=== PATIENT | male | born 1980 | race Two or more races ===

== ENCOUNTER 2024-07-24 08:20 | Emergency (ER) | payer MEDICAID, SELFPAY ==
--- NOTE | 2024-07-24 08:23 | EKG_ITS ---
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
[2024-07-24 08:25] VITALS: BP 179/111; PULSE 77; RESP 23; TEMP 37; O2SAT 94; BMI 36.3
--- NOTE | 2024-07-24 08:29 | XR_ITS ---
Examination: PA lateral chest 2 views TECHNIQUE: Upright PA lateral chest 2 views Exam date and time: July 24, 2024 0852 hours INDICATIONS: Chest pain beginning 2 weeks ago. FINDINGS: Normal heart size Pneumonia right base is no longer identified Currently lungs are clear Intact osseous structures IMPRESSION: No active disease
[2024-07-24 09:03] LABS: Basophils # (Auto) 0.1 Thou/mm3 (0.0-0.2); Basophils % (Auto) 0 % (0-2.5); Eosinophils # (Auto) 0.1 Thou/mm3 (0.0-0.5); Eosinophils % (Auto) 1 % (0-10); Hematocrit 40.8 % (41.0-53.0); Hemoglobin 13.3 g/dL (13.5-16.0); Immature Granulocytes % (Auto) 2 % (0-0); Immature Granulocytes Auto 0.39 Thou/mm3 (0.00-0.00); Lymphocytes # (Auto) 5.3 Thou/mm3 (1.0-4.8); Lymphocytes % (Auto) 30 % (10-50); Mean Corpuscular HGB Conc 32.6 g/dl (31.0-37.0); Mean Corpuscular Hemoglobin 26.2 pg (25.0-35.0); Mean Corpuscular Volume 80 fL (80-100); Monocytes % (Auto) 6 % (0-12); Neutrophils # (Auto) 10.5 Thou/mm3 (1.8-7.7); Neutrophils % (Auto) 61 % (37-80); Nucleated Red Blood Cell % 0 /100 WBC (0); Platelet Count 382 Thou/mm3 (140-440); RDW Standard Deviation 50.4 fL (35.1-43.9); Red Blood Count 5.08 Miln/mm3 (4.50-5.90); White Blood Count 17.4 Thou/mm3 (3.8-10.6)
[2024-07-24 09:11] LABS: Amphetamine/Methamp Scrn,U Negative (Negative); Barbiturate Screen,Urine Negative (Negative); Benzodiazepines Screen,Urine Negative (Negative); Benzoylecgonine Screen, Ur Negative (Negative); Fentanyl Screen,Urine Negative (Negative); Opiate Screen,Urine Negative (Negative); THC Screen,Urine Positive (Negative)
[2024-07-24 09:25] LABS: INR 1.1 (0.9-1.3); Partial Thromboplastin Time 26.1 Seconds (22.0-36.0); Prothrombin Time 11.6 Seconds (9.0-12.2)
[2024-07-24 09:26] LABS: B-Type Natriuretic Peptide 57 pg/mL (0-100)
[2024-07-24 09:28] LABS: Alanine Aminotransferase 77 U/L (10-49); Albumin, Serum 4.6 gm/dL (3.5-5.0); Albumin/Globulin Ratio 1.7 (1.2-2.2); Alcohol, Blood Medical 144.9 mg/dL (0-10.0); Alkaline Phosphatase 167 U/L (46-116); Anion Gap 12 (7-16); Aspartate Amino Transferase 43 U/L (0-34); BUN/Creatinine Ratio 12 Ratio (12-20); Bilirubin,Total 0.7 mg/dL (0.3-1.2); Blood Urea Nitrogen 13 mg/dL (9-23); Calcium 9.8 mg/dL (8.3-10.6); Calcium (Corrected) 9.8 mg/dL (8.5-10.1); Carbon Dioxide 19.5 mMol/L (20.0-31.0); Chloride 106 mMol/L (98-107); Creatinine (Component) 1.1 mg/dL (0.6-1.3); Estimated Creatinine Clearance 90.6 mL/min (>60); Globulin 2.7 gm/dL (2.3-3.5); Glucose 317 mg/dL (74-106); Magnesium 1.6 mg/dL (1.6-2.6); Osmolality,Calculated 285 (275-295); Potassium 3.2 mMol/L (3.4-5.1); Sodium 137 mMol/L (136-145); Total Protein 7.3 gm/dL (5.7-8.2); Troponin I < 0.020 ng/mL (0.0-0.045); eGFR > 60 See Note
[2024-07-24 09:34] VITALS: BP 122/83; PULSE 80; RESP 22; TEMP 36.6; O2SAT 96
[2024-07-24] MEDS: SODIUM CHLORIDE 0.9% 500 ML 500 ML 999 ML IV (10:09)
[2024-07-24] MEDS: POTASSIUM CHLORIDE 20 mEq TABCR 40 MEQ PO (10:11)
[2024-07-24 10:35] LABS: Phosphorous 1.4 mg/dL (2.4-5.1)
[2024-07-24] MEDS: ALBUTEROL/IPRATROPIUM (Duoneb) RT SOL 3 ML NEBU INH (10:35)
[2024-07-24 10:38] VITALS: PULSE 73; RESP 16; O2SAT 99
[2024-07-24 10:40] LABS: D-Dimer < 250 ng/mL (<600)
--- NOTE | 2024-07-24 11:08 | EDNOTE_ITS ---
ED SOB =RME/HPI General Chief Complaint: Shortness of Breath/Dyspnea Stated Complaint: pna, sob Time Seen by Provider: 07/24/24 08:20 Arrival date/time: 07/24/24 08:20 RME / HPI RME / HPI Narrative: A 43-year-old male patient known case of SVT, CAD, hypertension, alcohol use disorder, methamphetamine abuse, presented to the ED due to shortness of breath for 2 weeks. Patient reported that he has shortness of breath for the past 2 weeks that worsening over time, he came to the ED previously and he was prescribed Z-Jake however it did not improve his symptoms. Patient reported that he has no fever or chills however he has increased urination, patient reported that he has support 2 pillows behind his back on his sleep because of the shortness of breath he reported that 4 days ago he had an episode of heart racing for 5 minutes however he denied any chest pain. He reported that his palpitation resolved after some ice his face. Last methamphetamine abuse was yesterday Last drink was yesterday night Related Data Home Medications ?Medication ?Instructions ?Recorded ?Confirmed lactulose 10 gram/15 mL oral 15 ml BID 04/16/23 06/18/24 solution amoxicillin 875 mg-potassium 1 tab BID 06/18/24 06/18/24 clavulanate 125 mg tablet Previous Rx's ?Medication ?Instructions ?Recorded aspirin 81 mg tablet,delayed 81 mg PO QDAY 30 days #30 tabs 06/19/24 release atorvastatin 80 mg tablet 80 mg PO HS 30 days #30 tabs 06/19/24 losartan 100 mg tablet 100 mg PO QDAY #30 tabs 06/19/24 metoprolol succinate 50 mg 50 mg PO QDAY 30 days #30 tabs 06/19/24 tablet,extended release 24 hr benzonatate 100 mg capsule 100 mg PO TID #14 caps 07/13/24 ibuprofen 800 mg tablet 800 mg PO TID PRN pain #30 tabs 07/13/24 azithromycin 250 mg tablet See Rx Instructions PO .COMPLEX #6 07/15/24 tabs Allergies Allergy/AdvReac Type Severity Reaction Status Date / Time fluconazole Allergy Intermediate Swelling Verified 07/13/24 11:16 vancomycin Allergy Intermediate Rash Verified 07/13/24 11:16 Review of Systems Review of Systems Systems Reviewed: All systems reviewed, normal except as documented ED Exam Narrative Physical exam: GEN: AOx3, able to speak full sentences, mild shortness of breath. 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 Course Quality Measures none Orders Category Date Time Status EKG (ED ONLY) *Do not use* NOW Care 07/24/24 08:23 Completed Diet Carbohydrate Consistent Low Diet 07/24/24 Breakfast Active EKG (ED Only) Stat Exams 07/24/24 08:23 Draft XR chest 2V Stat Exams 07/24/24 08:29 Completed Alcohol, Blood Medical Stat Lab 07/24/24 08:49 Completed B-Type Natriuretic Peptide Stat Lab 07/24/24 08:49 Completed CBC Stat Lab 07/24/24 08:49 Completed Comprehensive Metabolic Panel Stat Lab 07/24/24 08:49 Completed D-Dimer Stat Lab 07/24/24 08:49 Completed Drug Screen,Urine Stat Lab 07/24/24 08:43 Completed Magnesium Stat Lab 07/24/24 08:49 Completed Partial Thromboplastin Time Stat Lab 07/24/24 08:49 Completed Phosphorous Stat Lab 07/24/24 08:49 Completed Prothrombin Time with INR Stat Lab 07/24/24 08:49 Completed Troponin I Stat Lab 07/24/24 08:49 Completed Albuterol/Ipratr Rt Angi [Duoneb Rt Angi] Med 07/24/24 09:45 Discontinued 3 ml INH X1 ONE Aspirin Med 07/24/24 09:22 Discontinued 325 mg PO X1 ONE Naph,[facility] [Neutra-Phos Pkt] Med 07/24/24 12:14 Discontinued 1 packet PO X1 ONE Nitroglycerin Oint 2% [Nitro-paste Oint 2%] Med 07/24/24 09:22 Discontinued 1 inch TOP X1 ONE Potassium Chloride [K-Dur] Med 07/24/24 09:47 Discontinued 40 meq PO X1 ONE Sodium Chloride 0.9% 500 ml [Ns] 500 ml Med 07/24/24 09:48 Discontinued IV 999 mls/hr Sodium Chloride 0.9% 500 ml [Ns] 500 ml Med 07/24/24 12:22 Discontinued IV 999 mls/hr Vital Signs Vital signs: Vital Signs Temperature 98.6 F 07/24/24 08:25 Pulse Rate 77 07/24/24 08:25 Respiratory Rate 23 H 07/24/24 08:25 Blood Pressure 179/111 H 07/24/24 08:25 Pulse Oximetry (%) 94 L 07/24/24 08:25 Oxygen Delivery Method Room Air 07/24/24 08:25 Shortness of Breath / Dyspnea MDM Narrative MDM Narrative:: On evaluation patient was found to have Blood pressure of 179/111, heart rate of 77, respiratory rate of 23, temperature of 98.6 O2 saturation 94 on room air. Chest x-ray was clear not the pathology. Consolidation from 1 week ago appears to be resolved. WBC found to be 17.4, given the fact that the patient has WBC level of 17.4 this could be secondary to meth abuse as the patient's last meth abuse was yesterday. Also patient was drinking last night however he denied passing out. Vicon-C showed potassium level 3.2 was given potassium, glucose level was found to be 317 patient reported that his prediabetes. Phosphorus level found to be 1.4, AST and LT were found to be elevated 43 and 77 respectively, BNP and troponin are within normal limits. Patient was given breathing treatment which improved his symptoms and also was given 1 bolus of IV fluid 500 as the patient was complaining of excessive diuresis most likely secondary to increased blood sugar. After few hours of starting the treatment patient started to improve and he decided to leave [place]. Patient data External records reviewed:: [facility] previous records Clinical information provided by:: patient Social determinants that could affect healthcare access:: substance use Patient has the following chronic illnesses:: CHF, hypertension, substance abuse How is presenting disease/condition affected by chronic disease/condition?: exacerbated by Evaluation data The following diagnostics were reviewed and interpreted by me:: lab results, radiology exam(s) and EKG tracing(s) Lab and/or radiology exams considered but not ordered:: None Interpretation Summary: CHF exacerbation, dehydration Medications / Prescriptions Medications or Prescriptions considered but not ordered:: None Medication administrations:: Medication Administration History Discontinued Medications Albuterol/Ipratropium (Albuterol/Ipratropium (Duoneb) Rt Angi 3 Ml Nebu) 3 ml INH X1 ONE Stop: 07/24/24 09:46 Last Admin: 07/24/24 10:35 Dose: 3 ml Documented By: GREYSON Aspirin (Aspirin 325 Mg Tablet) 325 mg PO X1 ONE Stop: 07/24/24 09:23 Sodium Chloride (Ns) 500 mls @ 999 mls/hr IV .Q31M ONE Stop: 07/24/24 10:18 Last Admin: 07/24/24 10:09 Dose: 999 mls/hr Documented By: JUNI Sodium Chloride (Ns) 500 mls @ 999 mls/hr IV .Q31M ONE Stop: 07/24/24 12:52 Nitroglycerin (Nitroglycerin Oint 2% 1 Inch Packet) 1 inch TOP X1 ONE Stop: 07/24/24 09:23 Potassium Chloride (Potassium Chloride 20 Meq Tabcr) 40 meq PO X1 ONE Stop: 07/24/24 09:48 Last Admin: 07/24/24 10:11 Dose: 20 meq Documented By: JUNI Potassium Phos/Sodium Phos (Naph,[facility] 1 Packet (1.5 Gm)) 1 packet PO X1 ONE Stop: 07/24/24 12:15 As above if given Consultations Consultation(s) initiated? (list below): No Diagnosis Shortness of Breath Differential Diagnosis: congestive heart failure Most likely diagnosis given after review of the tests above:: Dehydration, CHF exacerbation Admission Indicated Admission indicated?: not indicated Admission Request Was there a request for admission?: No Disposition Plan Disposition Plan: other (specify) (Patient left AMA) Discharge Plan Plan Patient Disposition: Left Against Medical Advice Prescriptions/Referrals Prescriptions/Med Rec: No Action amoxicillin-pot clavulanate 875-125 mg tablet 1 tab BID atorvastatin 80 mg tablet 80 mg PO HS 30 Days Qty: 30 2RF aspirin 81 mg Tablet,Delayed Release (Dr/Ec) 81 mg PO QDAY 30 Days Qty: 30 2RF metoprolol succinate 50 mg tablet extended release 24 hr 50 mg PO QDAY 30 Days Qty: 30 2RF losartan 100 mg tablet 100 mg PO QDAY Qty: 30 2RF lactulose 10 gram/15 mL solution 15 ml BID ibuprofen 800 mg tablet 800 mg PO TID PRN (Reason: pain) Qty: 30 0RF benzonatate 100 mg capsule 100 mg PO TID Qty: 14 0RF azithromycin 250 mg tablet See Rx Instructions .ROUTE .COMPLEX Qty: 6 0RF Rx Instructions: For 250 mg dose pack: take 500 mg today (day 1), then 250 mg for 4 days (days 2-5) Referrals: Marek England MD [Primary Care Provider] - In 1 week Problem List Clinical Impression: CHF (congestive heart failure) Patient/Caregiver Discharge Instructions Print Language: Telugu
[2024-07-24 12:00] VITALS: BP 146/85; PULSE 80; RESP 18; O2SAT 94
--- NOTE | 2024-07-24 13:00 | PC.NURSE ---
P became anxious and wanted to leave. Pt informed that if he leaves before exam compleat, could lead to injury and or . Pt verbalizes he understands and still wants to leaves. Ptr signed out of ED against medical advice. IV removed. pt left.
== END 2024-07-24 13:00 | disposition left against medical advice (07) ==
PROVIDERS: Nurse Practitioner Primary Care; Student in an Organized Health Care Education/Training Program; Emergency Provider Emergency Medicine; PCP Family Medicine
DX: I11.0 Hypertensive heart disease with heart failure (principal); I50.9 Heart failure, unspecified; F15.10 Other stimulant abuse, uncomplicated; R07.9 Chest pain, unspecified; Z53.29 Procedure and treatment not carried out because of patient's decision for other reasons
CPT/HCPCS: 36415; 71046; 80053; 80307; 80320; 83735; 83880; 84100; 84484; 85025; 85379; 85610; 85730; 93005; 94640; 99284; A9270; J7040; G0480

== ENCOUNTER 2025-01-08 08:59 | Emergency (ER) | payer MEDICAID, SELFPAY ==
--- NOTE | 2025-01-08 09:02 | EKG_ITS ---
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
[2025-01-08 09:12] VITALS: BP 149/83; PULSE 73; RESP 18; TEMP 37.1; O2SAT 97; BMI 40.8
--- NOTE | 2025-01-08 09:16 | XR_ITS ---
Examination: PA lateral chest 2 views TECHNIQUE: Upright PA lateral chest 2 views Exam date and time: January 08, 2025 1032 hours INDICATIONS: Right upper abdominal pain chest pain nausea constipation beginning one week ago FINDINGS: Normal heart size Lungs are clear. Osseous structures are intact IMPRESSION: No active disease
--- NOTE | 2025-01-08 09:16 | XR_ITS ---
Examination: Abdomen sonogram, Limited Date and time of exam: January 08, 2025 0935 hours INDICATIONS: Right upper abdominal pain beginning one week ago Technique: Real-time dejesus scale transabdominal sonographic images of the upper abdomen obtained. Findings: Cholelithiasis. Gallbladder wall 0.3 cm no edema Common bile duct 0.4 cm Pancreatic head 3.3 cm Liver 17.3 cm irregular contour no focal liver lesions Normal hepatopedal portal venous flow Patent IVC IMPRESSION: Cholelithiasis, negative for cholecystitis Mild hepatomegaly suspect primary hepatocellular disease
--- NOTE | 2025-01-08 09:17 | EDRME_ITS ---
Rapid Medical Screening Exam [facility] Arrival date/time: 01/08/25 08:59 44-year-old male presents to the emergency department for complaint of chest pain right upper abdominal pain and nausea ongoing x 1 week Chief Complaint: Abdominal Pain Vital signs: Vital Signs Temperature 98.7 F 01/08/25 09:12 Pulse Rate 73 01/08/25 09:12 Respiratory Rate 18 01/08/25 09:12 Blood Pressure 149/83 H 01/08/25 09:12 Pulse Oximetry (%) 97 01/08/25 09:12 Oxygen Delivery Method Room Air 01/08/25 09:12
[2025-01-08] MEDS: ONDANSETRON ODT 4 MG TABRAP PO (10:07)
[2025-01-08] MEDS: IBUPROFEN TAB 400 MG TABLET 800 MG PO (10:07)
[2025-01-08 10:12] LABS: Basophils # (Auto) 0.1 Thou/mm3 (0.0-0.2); Basophils % (Auto) 1 % (0-2.5); Eosinophils # (Auto) 0.3 Thou/mm3 (0.0-0.5); Eosinophils % (Auto) 3 % (0-10); Hematocrit 33.8 % (41.0-53.0); Hemoglobin 10.4 g/dL (13.5-16.0); Immature Granulocytes % (Auto) 0 % (0-0); Immature Granulocytes Auto 0.02 Thou/mm3 (0.00-0.00); Lymphocytes # (Auto) 2.6 Thou/mm3 (1.0-4.8); Lymphocytes % (Auto) 35 % (10-50); Mean Corpuscular HGB Conc 30.8 g/dl (31.0-37.0); Mean Corpuscular Volume 75 fL (80-100); Monocytes # (Auto) 0.6 Thou/mm3 (0.0-0.8); Monocytes % (Auto) 8 % (0-12); Neutrophils # (Auto) 3.9 Thou/mm3 (1.8-7.7); Neutrophils % (Auto) 52 % (37-80); Nucleated Red Blood Cell % 0 /100 WBC (0); Platelet Count 317 Thou/mm3 (140-440); RDW Standard Deviation 46.5 fL (35.1-43.9); Red Blood Count 4.52 Miln/mm3 (4.50-5.90); White Blood Count 7.4 Thou/mm3 (3.8-10.6)
[2025-01-08 10:13] LABS: Collection Type, Urine Clean Catch; RBC,Urine 0 /hpf (0-3); Squamous Epithelial Cell,Urine 0 /hpf (0-5); WBC,Urine 0 /hpf (0-5)
[2025-01-08 10:33] LABS: Bilirubin,Urine Negative (Negative); Blood,Urine Negative (Negative); Clarity,Urine Clear (Clear/Hazy); Color,Urine Colorless (Lt Yel-Yel); Culture Indicated,Urine Not Indicated; Glucose, Urine 3+ (Negative); Ketones,Urine Negative (Negative); Leukocyte Esterase,Urine Negative (Negative); Nitrite,Urine Negative (Negative); PH,Urine 6.5 (5.0-7.0); Protein,Urine Negative (Neg - Trace); Specific Gravity,Urine 1.006 (1.001-1.035); Urobilinogen,Urine Negative mg/dL (0.0-1.0)
[2025-01-08 10:38] LABS: Alanine Aminotransferase 21 U/L (10-49); Albumin, Serum 4.8 gm/dL (3.5-5.0); Albumin/Globulin Ratio 1.9 (1.2-2.2); Alkaline Phosphatase 94 U/L (46-116); Anion Gap 12 (7-16); Aspartate Amino Transferase 33 U/L (0-34); BUN/Creatinine Ratio 16 Ratio (12-20); Bilirubin,Total 1.2 mg/dL (0.3-1.2); Blood Urea Nitrogen 16 mg/dL (9-23); Calcium 9.4 mg/dL (8.3-10.6); Calcium (Corrected) 9.4 mg/dL (8.5-10.1); Carbon Dioxide 22.9 mMol/L (20.0-31.0); Chloride 105 mMol/L (98-107); Estimated Creatinine Clearance 104.9 mL/min (>60); Globulin 2.5 gm/dL (2.3-3.5); Glucose 142 mg/dL (74-106); Lipase 55 U/L (12-53); Osmolality,Calculated 282 (275-295); Potassium 3.9 mMol/L (3.4-5.1); Sodium 140 mMol/L (136-145); Total Protein 7.3 gm/dL (5.7-8.2); Troponin I < 0.002 ng/mL (0.0-0.045); eGFR > 60 See Note
[2025-01-08 10:50] LABS: Amphetamine/Methamp Scrn,U Negative (Negative); Barbiturate Screen,Urine Negative (Negative); Benzodiazepines Screen,Urine Negative (Negative); Benzoylecgonine Screen, Ur Negative (Negative); Fentanyl Screen,Urine Negative (Negative); Opiate Screen,Urine Negative (Negative); THC Screen,Urine Positive (Negative)
--- NOTE | 2025-01-08 11:26 | PD.EDCHEST ---
ED Chest Pain RME/HPI General Chief Complaint: Abdominal Pain Stated Complaint: RUQ ABD PAIN, CHEST PAIN, NAUSEA Time Seen by Provider: 01/08/25 11:18 Arrival date/time: 01/08/25 08:59 RME / HPI RME / HPI narrative: 44-year-old male presents to the emergency department for complaint of chest pain right upper abdominal pain and nausea ongoing x 1 week. It comes and goes, described as sharp pain, severity moderate. Patient denies any fever denies any diarrhea denies any constipation denies any other complaints. No medication was taken prior to arrival. Related Data Home Medications ?Medication ?Instructions ?Recorded ?Confirmed lactulose 10 gram/15 mL oral 30 ml BID 04/16/23 07/25/24 solution Previous Rx's ?Medication ?Instructions ?Recorded aspirin 81 mg tablet,delayed 81 mg PO QDAY 30 days #30 tabs 06/19/24 release atorvastatin 80 mg tablet 80 mg PO HS 30 days #30 tabs 06/19/24 benzonatate 100 mg capsule 100 mg PO TID #14 caps 07/13/24 amoxicillin 875 mg-potassium 1 tab PO BID 4 days #8 tabs 07/27/24 clavulanate 125 mg tablet losartan 25 mg tablet 50 mg (2 x 25 mg) PO QDAY 1 month 07/27/24 #60 tabs ketorolac 10 mg tablet 10 mg PO Q8H PRN pain 5 days #20 01/08/25 tabs metoclopramide HCl 10 mg tablet 10 mg PO Q8H PRN nausea and 01/08/25 (Reglan) vomiting #20 tabs pantoprazole 40 mg tablet,delayed 40 mg PO QDAY #20 tabs 01/08/25 release (Protonix) Allergies Allergy/AdvReac Type Severity Reaction Status Date / Time vancomycin Allergy Intermediate Rash Verified 07/13/24 11:16 fluconazole AdvReac Intermediate Swelling Verified 07/26/24 16:29 of Lip/Tongue/Throat Review of Systems Review of Systems Narrative Review of Systems: Review of system reviewed and within normal limits except mentioned in HPI ED Exam Narrative Physical exam: VITAL SIGNS: Reviewed. GENERAL APPEARANCE: Alert and interactive, follows commands, no acute distress, HEAD AND FACE: Non-traumatic. ENT: PERRL, pink conjunctivitis, eyelid no trauma, Mucous membrane moist. NECK: Supple, nontender, no nuchal rigidity. CHEST: No tenderness, no crepitus, no paradoxical movement, no retractions. LUNGS: Clear, well ventilated, symmetric, no rales, no wheezing, no ronchi, no stridor, good breath sounds bilaterally. HEART: Regular rate, regular rhythm, no murmur, no gallops. ABDOMEN: Soft, positive bowel sounds, nondistended, no guarding, right upper quadrant tenderness, no rebound, no masses, RECTAL: Deferred. GENITAL: Deferred. NEUROLOGICAL: Gross motor function intact sensory function intact, Appropriate for age. MUSCULOSKELETAL: low back nontender, full range of motion. EXTREMITIES: Nontender, full range of motion. SKIN: Color pink, dry, no rash, no lacerations, no abrasions, no contusions. LYMPHATICS: Deferred. Course Quality Measures none Orders Category Date Time Status EKG (ED ONLY) *Do not use* NOW Care 01/08/25 09:02 Completed EKG (ED Only) Stat Exams 01/08/25 09:02 Draft US gall bladder Stat Exams 01/08/25 09:16 Completed XR chest 2V Stat Exams 01/08/25 09:16 Completed CBC Stat Lab 01/08/25 09:53 Completed Comprehensive Metabolic Panel Stat Lab 01/08/25 09:53 Completed Drug Screen,Urine Stat Lab 01/08/25 10:05 Completed Lipase Stat Lab 01/08/25 09:53 Completed Troponin I Stat Lab 01/08/25 09:53 Completed UA, C/S IF [Urinalysis, C/S if Indicated] Stat Lab 01/08/25 10:05 Completed Ibuprofen Tab [Motrin Tab] Med 01/08/25 09:22 Discontinued 800 mg PO X1 ONE Ketorolac Inj [Toradol Inj] Med 01/08/25 11:23 Discontinued 30 mg IM X1 ONE Metoclopramide [Reglan] Med 01/08/25 11:24 Discontinued 10 mg PO X1 ONE Ondansetron Odt [Zofran Odt] Med 01/08/25 09:22 Discontinued 4 mg PO X1 ONE mg Hyd/Al Hyd/Trent Susp [Maalox Susp] Med 01/08/25 11:23 Discontinued 30 ml PO X1 ONE Vital Signs Vital signs: Vital Signs Temperature 98.7 F 01/08/25 09:12 Pulse Rate 73 01/08/25 09:12 Respiratory Rate 18 01/08/25 09:12 Blood Pressure 149/83 H 01/08/25 09:12 Pulse Oximetry (%) 97 01/08/25 09:12 Oxygen Delivery Method Room Air 01/08/25 09:12 Chest Pain [facility] Narrative [facility] Narrative:: 44-year-old male presents to the emergency department for complaint of chest pain right upper abdominal pain and nausea ongoing x 1 week. It comes and goes, described as sharp pain, severity moderate. Patient denies any fever denies any diarrhea denies any constipation denies any other complaints. No medication was taken prior to arrival. Patient's workup is significant for cholelithiasis with no sign of acute cholecystitis. Patient was given Toradol Reglan Zofran and Maalox with significant improvement of symptoms. I personally reviewed and interpreted the x-ray of this patient. There is no acute abnormalities found, no infiltrates no pneumothorax no hemothorax normal chest x-ray. Review of other structures was without significant abnormal findings also. EKG showed normal sinus rhythm, ventricular rate of 69 bpm, no ST segment elevation or depression other. I additionally reviewed the radiologist report and agree with the interpretation. Clinically there is no sign of acute cholecystitis. Patient is stable for discharge home was advised to follow-up with PCP and for referral to general surgeon for definitive management of the gallbladder. Patient agrees with the plan Patient data External records reviewed:: None Clinical information provided by:: patient Social determinants that could affect healthcare access:: none Patient has the following chronic illnesses:: None How is presenting disease/condition affected by chronic disease/condition?: no chronic disease Evaluation data The following diagnostics were reviewed and interpreted by me:: lab results, radiology exam(s) and EKG tracing(s) Lab and/or radiology exams considered but not ordered:: None Interpretation Summary: See results in MDM Medications / Prescriptions Medications or Prescriptions considered but not ordered:: None Medication administrations:: Medication Administration History Discontinued Medications Al Hydrox/Mg Hydrox/Simethicone (Mg Hyd/Al Hyd/Trent (Maalox Reg) Susp 30 Ml Udc) 30 ml PO X1 ONE Stop: 01/08/25 11:24 Ibuprofen (Ibuprofen Tab 400 Mg Tablet) 800 mg PO X1 ONE Stop: 01/08/25 09:23 Last Admin: 01/08/25 10:07 Dose: 800 mg Documented By: DB Ketorolac Tromethamine (Ketorolac Inj 60 Mg/2 Ml Vial) 30 mg IM X1 ONE Stop: 01/08/25 11:24 Metoclopramide HCl (Metoclopramide 5 Mg Tablet) 10 mg PO X1 ONE Stop: 01/08/25 11:25 Ondansetron HCl (Ondansetron Odt 4 Mg Tabrap) 4 mg PO X1 ONE; Protocol Stop: 01/08/25 09:23 Last Admin: 01/08/25 10:07 Dose: 4 mg Documented By: Damion Kerr Zofran Consultations Consultation(s) initiated? (list below): No Diagnosis Chest Pain Differential Diagnosis: chest pain and biliary colic Most likely diagnosis given after review of the tests above:: Cholelithiasis Admission Indicated Admission indicated?: not indicated Admission Request Was there a request for admission?: No Disposition Plan Disposition Plan: Discharge Discharge Attestation Discharge Attestation: The patient was given an opportunity to ask questions and understood the discharge instructions. Discharge instructions specifically effects, indications for sooner follow up or return to the emergency department, and the expected course of current diagnosis. Patient condition: Stable Discharge Plan Plan Patient Disposition: HOME (Self Care) Disposition Comment: stable Prescriptions/Referrals Prescriptions/Med Rec: New metoclopramide HCl [Reglan] 10 mg tablet 10 mg PO Q8H PRN (Reason: nausea and vomiting) Qty: 20 0RF ketorolac 10 mg tablet 10 mg PO Q8H PRN (Reason: pain) 5 Days Qty: 20 0RF pantoprazole [Protonix] 40 mg tablet,delayed release (DR/EC) 40 mg PO QDAY Qty: 20 0RF No Action atorvastatin 80 mg tablet 80 mg PO HS 30 Days Qty: 30 2RF aspirin 81 mg Tablet,Delayed Release (Dr/Ec) 81 mg PO QDAY 30 Days Qty: 30 2RF lactulose 10 gram/15 mL solution 30 ml BID benzonatate 100 mg capsule 100 mg PO TID Qty: 14 0RF losartan 25 mg Tablet 50 mg PO QDAY 30 Days Qty: 60 1RF amoxicillin-pot clavulanate 875-125 mg tablet 1 tab PO BID 4 Days Qty: 8 0RF Referrals: Marek England MD [Primary Care Provider] - In 1 week Problem List Clinical Impression: Cholelithiasis Patient/Caregiver Discharge Instructions Discharge Activity: activity as tolerated Education Materials: Treating Gallstones Additional Instructions: Thank you for the opportunity for serving you today. You are stable for discharged . You are advised to: Follow-up with your PCP in 1 to 2 days as per referral to general surgeon regarding your gallstone Return to ED for worsening of symptoms Increase oral fluids Take medication as prescribed Please avoid eating fatty, greasy, fried foods Print Language: Dutch Stand Alone Forms: Abby Award Info., Patient Portal Info Letter PA/CARGO AND CONTAINER INSPECTOR Supervising Physician LYNNE/KARINA Supervising Physician: MD Jaz
[2025-01-08] MEDS: METOCLOPRAMIDE 5 MG TABLET 10 MG PO (12:10)
[2025-01-08] MEDS: MG HYD/AL HYD/SIME (Maalox Reg) SUSP 30 ML UDC PO (12:10)
[2025-01-08 12:11] VITALS: BP 138/84; PULSE 63; RESP 18; TEMP 36.8; O2SAT 97
[2025-01-08] MEDS: KETOROLAC INJ 60 MG/2 ML VIAL 30 MG IM (12:11)
== END 2025-01-08 12:14 | disposition home or self-care (01) ==
PROVIDERS: Nurse Practitioner Primary Care; Emergency Provider Emergency Medicine; PCP Family Medicine
DX: K80.20 Calculus of gallbladder without cholecystitis without obstruction (principal); R07.9 Chest pain, unspecified
CPT/HCPCS: 36415; 71046; 76705; 80053; 80307; 81001; 83690; 84484; 85025; 93005; 96372; 99284; J1885; Q0162; A9270

== ENCOUNTER 2025-03-14 07:55 | Emergency (ER) | payer MEDICAID, SELFPAY ==
--- NOTE | 2025-03-14 08:04 | EDNOTE_ITS ---
ED Wound/Laceration-RME/HPI General Chief Complaint: Wound/Laceration Stated Complaint: Post op 2 days ago, bleeding and pain Time Seen by Provider: 03/14/25 08:04 Arrival date/time: 03/14/25 07:55 This is a 44-year-old male that comes into the emergency room with complaints of postop pain patient states that he has had a hemorrhoidectomy approximately 2 days ago. Patient states he has not picked up his medication or suppositories from pharmacy. Related Data Home Medications ?Medication ?Instructions ?Recorded ?Confirmed lactulose 10 gram/15 mL oral 30 ml BID 04/16/23 solution Previous Rx's ?Medication ?Instructions ?Recorded aspirin 81 mg tablet,delayed 81 mg PO QDAY 30 days #30 tabs 06/19/24 release atorvastatin 80 mg tablet 80 mg PO HS 30 days #30 tabs 06/19/24 benzonatate 100 mg capsule 100 mg PO TID #14 caps 11/04 amoxicillin 875 mg-potassium 1 tab PO BID 4 days #8 ta bs 07/27/24 clavulanate 125 mg tablet losartan 25 mg tablet 50 mg (2 x 25 mg) PO QDAY 1 month 07/27/24 #60 tabs metoclopramide HCl 10 mg tablet 10 mg PO Q8H PRN nause a and 01/08/25 (Reglan) vomiting #20 tabs pantoprazole 40 mg tablet,delayed 40 mg PO QDAY #20 ta bs 01/08/25 release (Protonix) docusate sodium 100 mg capsule 100 mg PO BID #20 caps 03/14/25 (Colace) hydrocodone 5 mg-acetaminophen 325 1 tab PO Q6H PRN pa in #10 tabs 03/14/25 mg tablet hydrocortisone 2.5 % topical cream 1 applic OH QDAY OH N pain #30 grams 03/14/25 with perineal applicator (Proctozone-HC) Allergies Allergy/AdvReac Type Severity Reaction Status Date / Time vancomycin Allergy Intermediate Rash Verified 03/14/25 08:02 fluconazole AdvReac Intermediate Swelling Verified 03/14/25 08:02 of Lip/Tongue/Throat Course Orders Category Date Time Status Ketorolac Inj [Toradol Inj] Med 03/14/25 09:02 Discontinued 60 mg IM X1 ONE Metoclopramide Inj [Reglan Inj] Med 03/14/25 09:02 Discontinued 10 mg IM X1 ONE Vital Signs Vital signs: Vital Signs Temperature 99.0 F 03/14/25 08:08 Pulse Rate 76 03/14/25 08:08 Respiratory Rate 16 03/14/25 08:08 Blood Pressure 171/100 H 03/14/25 08:08 Pulse Oximetry (%) 99 03/14/25 08:08 Oxygen Delivery Method Room Air 03/14/25 08:08 Wound / Laceration MDM Narrative MDM Narrative:: I spoke to patient at length. Patient has his 4 children with him. Patient not able to get anything strong for pain because he is driving. I spoke to patient about getting Toradol. Patient states he did rather not take the Toradol because he does have liver cirrhosis and I did explain to him that anti- inflammatories can make you bleed more. Patient had not picked up his medications because he stated he could not afford the medications. Patient was prescribed an U-Kemar and per patient it was going to cost him $170. I spoke to pharmacy here at [facility]. We instead ordered proctozone cream. I will give patient a few doses of [place]. And I will prescribe patient some Colace along with it. I spoke to patient about getting labs and possibly CT scan. At this time it was not ordered. Patient would rather go home and see if medications help pain. Patient states that he will come back to the emergency room if symptoms change or worsen. Patient verbalized understanding. Medications / Prescriptions Medication administrations:: Medication Administration History Discontinued Medications Ketorolac Tromethamine (Ketorolac Inj 60 Mg/2 Ml Vial) 60 mg IM X1 ONE Stop: 03/14/25 09:03 Last Admin: 03/14/25 09:22 Dose: Not Given Documented By: KELLY Non-Admin Reason: Patient Refused Metoclopramide HCl (Metoclopramide Inj 5 Mg/Ml Vial 2 Ml) 10 mg IM X1 ONE; Protocol Stop: 03/14/25 09:03 Last Admin: 03/14/25 09:22 Dose: Not Given Documented By: KELLY Non-Admin Reason: Patient Refused Discharge Plan Plan Patient Disposition: HOME (Self Care) Patient condition on transfer: Stable Prescriptions/Referrals Prescriptions/Med Rec: New hydrocortisone [Proctozone-HC] 2.5 % cream with perineal applicator 1 applic OH QDAY PRN (Reason: pain) Qty: 30 0RF hydrocodone-acetaminophen 5-325 mg tablet 1 tab PO Q6H MDD 4 PRN (Reason: pain) Qty: 10 0RF docusate sodium [Colace] 100 mg capsule 100 mg PO BID Qty: 20 0RF No Action atorvastatin 80 mg tablet 80 mg PO HS 30 Days Qty: 30 2RF aspirin 81 mg Tablet,Delayed Release (Dr/Ec) 81 mg PO QDAY 30 Days Qty: 30 2RF lactulose 10 gram/15 mL solution 30 ml BID benzonatate 100 mg capsule 100 mg PO TID Qty: 14 0RF losartan 25 mg Tablet 50 mg PO QDAY 30 Days Qty: 60 1RF amoxicillin-pot clavulanate 875-125 mg tablet 1 tab PO BID 4 Days Qty: 8 0RF metoclopramide HCl [Reglan] 10 mg tablet 10 mg PO Q8H PRN (Reason: nausea and vomiting) Qty: 20 0RF pantoprazole [Protonix] 40 mg tablet,delayed release (DR/EC) 40 mg PO QDAY Qty: 20 0RF Problem List Clinical Impression: Anal or rectal pain, H/O hemorrhoidectomy Patient/Caregiver Discharge Instructions Discharge Activity: activity as tolerated Education Materials: Having Rectal Surgery Additional Instructions: Follow up with primary provider in 1-2 days. Come back to ED if symptoms change or worsen Print Language: Upper Sorbian Stand Alone Forms: Abby Award Info., Patient Portal Info Letter PA/SANITARY CHEMIST Supervising Physician PA/SANITARY CHEMIST Supervising Physician: Kenisha
[2025-03-14 08:08] VITALS: BP 171/100; PULSE 76; RESP 16; TEMP 37.2; O2SAT 99; BMI 41.1
[2025-03-14 09:24] VITALS: BP 180/78; PULSE 82; RESP 18; TEMP 36.7; O2SAT 98
== END 2025-03-14 09:25 | disposition home or self-care (01) ==
LOC: SERX 09:15
PROVIDERS: Emergency Provider Family Medicine
DX: G89.18 Other acute postprocedural pain (principal); K62.89 Other specified diseases of anus and rectum
CPT/HCPCS: 99281

== ENCOUNTER 2025-03-18 10:53 | Emergency (ER) | payer MEDICAID, SELFPAY ==
[2025-03-18 11:27] VITALS: BP 150/84; PULSE 96; RESP 18; O2SAT 97; BMI 41.1
--- NOTE | 2025-03-18 11:36 | PD.EDRME ---
Rapid Medical Screening Exam E Arrival date/time: 03/18/25 10:53 44-year-old male presents to the emergency department for complaints of rectal pain patient reports history of hemorrhoidectomy at [facility] Chief Complaint: Wound Recheck / Suture Removal Vital signs: Vital Signs Pulse Rate 96 03/18/25 11:27 Respiratory Rate 18 03/18/25 11:27 Blood Pressure 150/84 H 03/18/25 11:27 Pulse Oximetry (%) 97 03/18/25 11:27 Oxygen Delivery Method Room Air 03/18/25 11:27
[2025-03-18] MEDS: HYDROcodone/APAP 5/325 TABLET 1 TAB PO (12:08)
[2025-03-18 12:27] LABS: Basophils # (Auto) 0.0 Thou/mm3 (0.0-0.2); Basophils % (Auto) 1 % (0-2.5); Eosinophils # (Auto) 0.2 Thou/mm3 (0.0-0.5); Eosinophils % (Auto) 3 % (0-10); Hematocrit 34.6 % (41.0-53.0); Hemoglobin 10.3 g/dL (13.5-16.0); Immature Granulocytes Auto 0.02 Thou/mm3 (0.00-0.00); Lymphocytes # (Auto) 2.6 Thou/mm3 (1.0-4.8); Lymphocytes % (Auto) 36 % (10-50); Mean Corpuscular HGB Conc 29.8 g/dl (31.0-37.0); Mean Corpuscular Hemoglobin 20.0 pg (25.0-35.0); Mean Corpuscular Volume 67 fL (80-100); Monocytes # (Auto) 0.5 Thou/mm3 (0.0-0.8); Monocytes % (Auto) 7 % (0-12); Neutrophils # (Auto) 3.9 Thou/mm3 (1.8-7.7); Neutrophils % (Auto) 54 % (37-80); Nucleated Red Blood Cell # 0.00 Thou/mm3 (0.00-0.00); Nucleated Red Blood Cell % 0 /100 WBC (0); Platelet Count 325 Thou/mm3 (140-440); RDW Standard Deviation 43.1 fL (35.1-43.9); Red Blood Count 5.16 Miln/mm3 (4.50-5.90); White Blood Count 7.4 Thou/mm3 (3.8-10.6)
[2025-03-18 12:42] LABS: Alanine Aminotransferase 37 U/L (10-49); Albumin, Serum 4.9 gm/dL (3.5-5.0); Albumin/Globulin Ratio 2.0 (1.2-2.2); Alkaline Phosphatase 111 U/L (46-116); Anion Gap 10 (7-16); Aspartate Amino Transferase 46 U/L (0-34); BUN/Creatinine Ratio 9 Ratio (12-20); Bilirubin,Total 0.8 mg/dL (0.3-1.2); Blood Urea Nitrogen 10 mg/dL (9-23); Calcium 9.7 mg/dL (8.3-10.6); Calcium (Corrected) 9.7 mg/dL (8.5-10.1); Carbon Dioxide 26.0 mMol/L (20.0-31.0); Chloride 109 mMol/L (98-107); Creatinine (Component) 1.1 mg/dL (0.6-1.3); Estimated Creatinine Clearance 95.8 mL/min (>60); Globulin 2.5 gm/dL (2.3-3.5); Glucose 107 mg/dL (74-106); Osmolality,Calculated 287 (275-295); Potassium 4.5 mMol/L (3.4-5.1); Sodium 145 mMol/L (136-145); Total Protein 7.4 gm/dL (5.7-8.2); eGFR > 60 See Note
--- NOTE | 2025-03-18 15:25 | PC.NURSE ---
Security saw patient leaving the hospital. Patient eloped.
[2025-03-18 15:38] VITALS: BP 154/90; PULSE 77; RESP 18; TEMP 36.7; O2SAT 98
--- NOTE | 2025-03-18 15:39 | PC.NURSE ---
Patient in ER taken to room 16. Patient states he did not elope, informed Registration to place patient back on tracker.
[2025-03-18 16:04] VITALS: BP 120/65; PULSE 74; RESP 20; O2SAT 94
--- NOTE | 2025-03-18 16:15 | PC.NURSE ---
pt here with complaint from post hemorrhoid removal on 03/14/[address] [facility] Dr. De in to see pt.
--- NOTE | 2025-03-18 16:17 | PC.NURSE ---
per Dr De CT and IV canceled.
--- NOTE | 2025-03-18 16:18 | PD.EDADULT ---
ED General RME/HPI General Chief complaint: Wound Recheck / Suture Removal Stated complaint: rectum pain, smells bad, surgery done 03/14 at [facility] Arrival date/time: 03/18/25 10:53 Limitations: no limitations RME / HPI RME / HPI narrative: 03/18/25 10:53 44-year-old male presents to the emergency department for complaints of rectal pain patient reports history of hemorrhoidectomy at [facility] DR. DASH MAIN ED EVALUATION: 44 year old male with history of hypertension, SVT, liver cirrhosis, polysubstance abuse presents to the ED for evaluation of rectal pain today. Reports undergoing hemorrhoidectomy by surgeon Dr. Butts on 03/14/2025 and has had pain since that is gradually worsening. States at home he is doing sitz baths 3 times a day with no relief. No other associated symptoms or complaints reported. Denies fevers, chills, or abdominal pain. Related Data Home Medications ?Medication ?Instructions ?Recorded ?Confirmed lactulose 10 gram/15 mL oral 30 ml BID 04/16/23 07/25/24 solution Previous Rx's ?Medication ?Instructions ?Recorded aspirin 81 mg tablet,delayed 81 mg PO QDAY 30 days #30 tabs 06/19/24 release atorvastatin 80 mg tablet 80 mg PO HS 30 days #30 tabs 06/19/24 benzonatate 100 mg capsule 100 mg PO TID #14 caps 07/13/24 amoxicillin 875 mg-potassium 1 tab PO BID 4 days #8 tabs 07/27/24 clavulanate 125 mg tablet losartan 25 mg tablet 50 mg (2 x 25 mg) PO QDAY 1 month 07/27/24 #60 tabs metoclopramide HCl 10 mg tablet 10 mg PO Q8H PRN nausea and 01/08/25 (Reglan) vomiting #20 tabs pantoprazole 40 mg tablet,delayed 40 mg PO QDAY #20 tabs 01/08/25 release (Protonix) docusate sodium 100 mg capsule 100 mg PO BID #20 caps 03/14/25 (Colace) hydrocodone 5 mg-acetaminophen 325 1 tab PO Q6H PRN pain #10 tabs 03/14/25 mg tablet hydrocortisone 2.5 % topical cream 1 applic [place] QDAY PRN pain #30 grams 03/14/25 with perineal applicator (Proctozone-HC) cephalexin 500 mg capsule 500 mg PO Q6H 7 days #28 caps 03/18/25 hydrocodone 5 mg-acetaminophen 325 1 tab PO Q6H PRN pain #20 tabs 03/18/25 mg tablet Allergies Allergy/AdvReac Type Severity Reaction Status Date / Time vancomycin Allergy Intermediate Rash Verified 03/14/25 08:02 fluconazole AdvReac Intermediate Swelling Verified 03/14/25 08:02 of Lip/Tongue/Throat Review of Systems Review of Systems Systems Reviewed: All systems reviewed, normal except as documented ED Exam General Limitations: Present no limitations General appearance: Present alert and other (appears to be in pain) Head Head exam: Present atraumatic Eye Eye exam: Present normal appearance, PERRL and EOMI ENT ENT exam: Present normal exam, normal oropharynx and mucous membranes moist Neck Neck exam: Present normal inspection, full ROM and trachea midline Chest Chest inspection: Present normal inspection and symmetric chest wall rise Respiratory Respiratory exam: Present normal lung sounds bilaterally Cardiovascular Cardiovascular exam: Present regular rate, normal rhythm and normal heart sounds Abdominal Exam Abdominal exam: Present soft and normal bowel sounds Rectal Exam Rectal exam: Present other (Inspection of the rectal/anal area shows a fresh wound on the right anal area about 1cm x 1 cm that is moist with very slight yellow discharge, none of the surrounding skin had erythema or edema, anal verge appeared intact. ) Extremities Exam Extremities exam: Present normal inspection and full ROM Back Exam Back exam: Present normal inspection and full ROM Neurological Exam Neurological exam: Present alert, oriented X3 and CN II-XII intact Psychiatric Psychiatric exam: Present normal affect and normal mood Skin Skin exam: Present warm, dry, intact and normal color Course Quality Measures none Orders Category Date Time Status CT Screening NOW Care 03/18/25 11:[address] abdomen pelvis w con Stat Exams 03/18/25 11:35 Stop Req CBC Stat Lab 03/18/25 11:47 Completed CMP [Comprehensive Metabolic Panel] Stat Lab 03/18/25 11:47 Completed HYDROcodone*/APAP 5/325 [[place] 5/325] Med 03/18/25 11:35 Discontinued 1 tab PO X1 ONE Ketorolac Inj [Toradol Inj] Med 03/18/25 16:17 Discontinued 30 mg IM X1 ONE LORazepam [Ativan] Med 03/18/25 16:17 Discontinued 0.5 mg PO X1 ONE Morphine Inj Med 03/18/25 16:17 Discontinued 4 mg IM X1 ONE Ondansetron Odt [Zofran Odt] Med 03/18/25 16:17 Discontinued 4 mg PO X1 ONE Vital Signs Vital signs: Vital Signs Pulse Rate 96 03/18/25 11:27 Respiratory Rate 18 03/18/25 11:27 Blood Pressure 150/84 H 03/18/25 11:27 Pulse Oximetry (%) 97 03/18/25 11:27 Oxygen Delivery Method Room Air 03/18/25 11:27 Pulse ox is 97% on room air which is adequate. Discharge Plan Plan Patient Disposition: HOME (Self Care) Prescriptions/Referrals Prescriptions/Med Rec: New cephalexin 500 mg capsule 500 mg PO Q6H 7 Days Qty: 28 0RF hydrocodone-acetaminophen 5-325 mg tablet 1 tab PO Q6H MDD 4 PRN (Reason: pain) Qty: 20 0RF No Action atorvastatin 80 mg tablet 80 mg PO HS 30 Days Qty: 30 2RF aspirin 81 mg Tablet,Delayed Release (Dr/Ec) 81 mg PO QDAY 30 Days Qty: 30 2RF lactulose 10 gram/15 mL solution 30 ml BID benzonatate 100 mg capsule 100 mg PO TID Qty: 14 0RF losartan 25 mg Tablet 50 mg PO QDAY 30 Days Qty: 60 1RF amoxicillin-pot clavulanate 875-125 mg tablet 1 tab PO BID 4 Days Qty: 8 0RF metoclopramide HCl [Reglan] 10 mg tablet 10 mg PO Q8H PRN (Reason: nausea and vomiting) Qty: 20 0RF pantoprazole [Protonix] 40 mg tablet,delayed release (DR/EC) 40 mg PO QDAY Qty: 20 0RF hydrocortisone [Proctozone-HC] 2.5 % cream with perineal applicator 1 applic [place] QDAY PRN (Reason: pain) Qty: 30 0RF hydrocodone-acetaminophen 5-325 mg tablet 1 tab PO Q6H MDD 4 PRN (Reason: pain) Qty: 10 0RF docusate sodium [Colace] 100 mg capsule 100 mg PO BID Qty: 20 0RF Referrals: Marek England MD [Primary Care Provider] - In 1 week Problem List Clinical Impression: H/O hemorrhoidectomy, Anal or rectal pain Patient/Caregiver Discharge Instructions Additional Instructions: Do a sitz bath 4 times a day with warm water. For pain, take both 1-2 Tylenol 500mg tablets every 6 hours AND 2 Advil Gel 200mg capsules every 6 hours. If pain remains uncontrolled, you can take the [place]. Follow up with surgeon Dr. Butts tomorrow for reevaluation. You can return to the emergency department sooner if symptoms worsen or if you notice any new, concerning issues. Print Language: Maltese Stand Alone Forms: Abby Award Info., Patient Portal Info Letter MDM Narrative MDM hospital course: Asha Vera am scribing for and in the presence of Dr. Dash. Clinical Information Provided by patient Medical Records Reviewed [facility] I reviewed ED visit on 03/14/2025 Meds/Rx Considered, not Ordered None Labs/Rad/Tests considered, not Ordered None Chronic Illness/Social Conditions which may negatively complicate care or outcome(s)-explain: ETOH/drugs/substance abuse EKG EKG not done Lab Interpretation Labs: interpreted by hi Lab(s) interpretation(s): No leukocytosis Imaging Imaging interpretation: none Medication Administration(s) Medication Administration History Discontinued Medications Hydrocodone Bitart/Acetaminophen (Hydrocodone/Apap 5/325 Tablet) 1 tab PO X1 ONE Stop: 03/18/25 11:36 Last Admin: 03/18/25 12:08 Dose: 1 tab Documented By: ROSE Ketorolac Tromethamine (Ketorolac Inj 30 Mg/Ml Vial) 30 mg IM X1 ONE Stop: 03/18/25 16:18 Lorazepam (Lorazepam 0.5 Mg Tablet) 0.5 mg PO X1 ONE Stop: 03/18/25 16:18 Morphine Sulfate (Morphine Sulf Inj 10 Mg/Ml Vial) 4 mg IM X1 ONE Stop: 03/18/25 16:18 Ondansetron HCl (Ondansetron Odt 4 Mg Tabrap) 4 mg PO X1 ONE; Protocol Stop: 03/18/25 16:18 See abovbe Diagnosis Most likely dx, and/or detailed dx discussion: h/o hemorrhoidectomy Dispositon Disposition: Discharge Home
[2025-03-18] MEDS: ONDANSETRON ODT 4 MG TABRAP PO (16:37)
[2025-03-18] MEDS: KETOROLAC INJ 30 MG/ML VIAL IM (16:39)
[2025-03-18] MEDS: MORPHINE SULF INJ 10 MG/ML VIAL 4 MG IM (16:42)
[2025-03-18 17:58] LABS: Path Review Blood Smear Sent to Pathologist
== END 2025-03-18 16:51 | disposition home or self-care (01) ==
PROVIDERS: Nurse Practitioner Primary Care; Emergency Provider Family Medicine; PCP Family Medicine
DX: K62.89 Other specified diseases of anus and rectum (principal); Z98.890 Other specified postprocedural states
CPT/HCPCS: 36415; 80053; 85025; 96372; 99283; J1885; J2270; Q0162; A9270

== ENCOUNTER 2025-08-21 09:18 | Emergency (ER) | payer MEDICAID, SELFPAY ==
[2025-08-21 09:20] VITALS: BMI 35.6
[2025-08-21 10:05] VITALS: BP 110/74; PULSE 60; RESP 18; TEMP 36.4; O2SAT 96
--- NOTE | 2025-08-21 10:21 | PD.EDRME ---
Rapid Medical Screening Exam RME Arrival date/time: 08/21/25 09:18 Chief Complaint: GI Bleed Time Seen by Provider: 08/21/25 10:10 Vital signs: Vital Signs Temperature 97.6 F 08/21/25 10:05 Pulse Rate 60 08/21/25 10:05 Respiratory Rate 18 08/21/25 10:05 Blood Pressure 110/74 08/21/25 10:05 Pulse Oximetry (%) 96 08/21/25 10:05 Oxygen Delivery Method Room Air 08/21/25 10:05 RM Narrative: 45-year-old male presents to the ER complaining of bright red blood per rectum and abdominal pain for 6 months worse today additionally patient states that he has been feeling more confused than normal as he put out bowl on the stove in the setting of liver cirrhosis. I briefly performed a screening evaluation to initiate work-up and expedite care. Complete history, physical exam, and plan of care is deferred to the provider in the main ED. Exam: Head: Normocephalic, atraumatic. Respiratory: Normal effort. No respiratory distress or accessory muscle use. Neuro: Speech normal. Skin: Warm, dry, normal color. Psych: Pleasant. Normal affect. Cooperative. Clinical Impression: Rule out GI bleed and hepatic encephalopathy
[2025-08-21 10:54] LABS: Collection Type, Urine Voided
[2025-08-21 10:57] LABS: Basophils # (Auto) 0.1 Thou/mm3 (0.0-0.2); Basophils % (Auto) 1 % (0-2.5); Eosinophils # (Auto) 0.3 Thou/mm3 (0.0-0.5); Eosinophils % (Auto) 3 % (0-10); Hematocrit 32.4 % (41.0-53.0); Hemoglobin 9.3 g/dL (13.5-16.0); Immature Granulocytes Auto 0.02 Thou/mm3 (0.00-0.00); Lymphocytes # (Auto) 2.9 Thou/mm3 (1.0-4.8); Lymphocytes % (Auto) 34 % (10-50); Mean Corpuscular HGB Conc 28.7 g/dl (31.0-37.0); Mean Corpuscular Hemoglobin 21.0 pg (25.0-35.0); Mean Corpuscular Volume 73 fL (80-100); Monocytes # (Auto) 0.8 Thou/mm3 (0.0-0.8); Monocytes % (Auto) 9 % (0-12); Neutrophils # (Auto) 4.5 Thou/mm3 (1.8-7.7); Neutrophils % (Auto) 53 % (37-80); Nucleated Red Blood Cell # 0.00 Thou/mm3 (0.00-0.00); Nucleated Red Blood Cell % 0 /100 WBC (0); Platelet Count 451 Thou/mm3 (140-440); RDW Standard Deviation 44.8 fL (35.1-43.9); Red Blood Count 4.42 Miln/mm3 (4.50-5.90); White Blood Count 8.4 Thou/mm3 (3.8-10.6)
[2025-08-21 11:08] LABS: Bacteria,Urine Rare; Bilirubin,Urine Negative (Negative); Blood,Urine Negative (Negative); Clarity,Urine Clear (Clear/Hazy); Color,Urine Yellow (Lt Yel-Yel); Glucose, Urine 4+ (Negative); Ketones,Urine Negative (Negative); Leukocyte Esterase,Urine Negative (Negative); Nitrite,Urine Negative (Negative); PH,Urine 6.0 (5.0-7.0); Protein,Urine Negative (Neg - Trace); RBC,Urine 4 /hpf (0-3); Specific Gravity,Urine 1.040 (1.001-1.035); Squamous Epithelial Cell,Urine < 1 /hpf (0-5); Urobilinogen,Urine Negative mg/dL (0.0-1.0); WBC,Urine 2 /hpf (0-5)
[2025-08-21 11:31] LABS: Alanine Aminotransferase 16 U/L (10-49); Albumin, Serum 4.8 gm/dL (3.5-5.0); Albumin/Globulin Ratio 2.1 (1.2-2.2); Alkaline Phosphatase 111 U/L (46-116); Anion Gap 9 (7-16); Aspartate Amino Transferase 25 U/L (0-34); BUN/Creatinine Ratio 14 Ratio (12-20); Bilirubin,Total 1.4 mg/dL (0.3-1.2); Blood Urea Nitrogen 14 mg/dL (9-23); Calcium 9.8 mg/dL (8.3-10.6); Calcium (Corrected) 9.8 mg/dL (8.5-10.1); Carbon Dioxide 24.2 mMol/L (20.0-31.0); Chloride 108 mMol/L (98-107); Creatinine (Component) 1.0 mg/dL (0.6-1.3); Estimated Creatinine Clearance 96.7 mL/min (>60); Globulin 2.3 gm/dL (2.3-3.5); Glucose 75 mg/dL (74-106); Lipase 47 U/L (12-53); Osmolality,Calculated 280 (275-295); Potassium 4.4 mMol/L (3.4-5.1); Sodium 141 mMol/L (136-145); Total Protein 7.1 gm/dL (5.7-8.2); eGFR > 60 See Note
[2025-08-21 11:40] LABS: Ammonia < 10 uMol/L (11-32)
--- NOTE | 2025-08-21 14:00 | PC.NURSE ---
pt called inside and outside ED lobby; no response at this time
--- NOTE | 2025-08-21 14:19 | PC.NURSE ---
CALLED PATIENT IN THE LOBBY AND OUTSIDE, NO ANSWER RECEIVED.
--- NOTE | 2025-08-21 14:54 | PC.NURSE ---
call pt to be revitaled and to do EKG. Pt did not answer at this time
== END 2025-08-21 15:21 | disposition left against medical advice (07) ==
LOC: SERX 11:06
PROVIDERS: Emergency Provider Physician Assistant; PCP Family Medicine
DX: R10.9 Unspecified abdominal pain (principal); R41.0 Disorientation, unspecified; Z53.29 Procedure and treatment not carried out because of patient's decision for other reasons
CPT/HCPCS: 36415; 80053; 81001; 82140; 83690; 85025; 87077; 87086; 87186; 99282